=== PATIENT | female | born 1935 | race Caucasian/White ===

== ENCOUNTER 2017-08-10 12:07 | Emergency (ER) | payer OTHER, BC ==
[~2017-08-10] VITALS: Ht 157.5 cm; Wt 51.2 kg
[~2017-08-10 12:07] MED LIST: BAY PO; BIOTIN1 TAB PO; CITRACAL PO; CO Q-1010 MG PO; DILAUDID2 MG PO; FLA500 PO; GABAPENTIN800 M1 PO; HYDROCHLOROTHIA25 MG PO; HYDROCHLOROTHIA50 MG PO; LEVOFLOXACIN500 M1 PO; LEVOTHYROXIN0.075 M2 PO; LISINOPRIL40 MG PO; LUTEIN20 M1 PO; METFORMIN HCL1000 MG PO; METFORMIN500 M1; OXYBUTYNIN CHLOR5 MG PO; PROBIOTIC FORMU1 CA2 PO; PROPRANOLOL HCL20 MG PO; SIMVASTATIN40 M1 PO; ZESTRIL20 MG PO; ZOF4 PO; ZONEGRAN100 MG PO; ZONISAMIDE100 M1 PO; [UNRECOGNIZED DRUG - OTHER] PO
[2017-08-10 12:12] VITALS: Ht 157.5 cm; Wt 51.2 kg
[2017-08-10 14:08] VITALS: BP 174/70
== END 2017-08-10 14:08 | disposition home or self-care (01) ==
LOC: ED 12:07
DX: S93.401A Sprain of unspecified ligament of right ankle, initial encounter (principal); I10 Essential (primary) hypertension; E11.9 Type 2 diabetes mellitus without complications; Z90.49 Acquired absence of other specified parts of digestive tract; Z90.710 Acquired absence of both cervix and uterus; Z85.3 Personal history of malignant neoplasm of breast; W18.39XA Other fall on same level, initial encounter; Y93.89 Activity, other specified; Y92.89 Other specified places as the place of occurrence of the external cause; Y99.8 Other external cause status

== ENCOUNTER 2018-09-29 07:46 | Inpatient (IN) | payer OTHER, BC ==
[~2018-09-29] VITALS: Ht 157.5 cm; Wt 54.9 kg
--- NOTE | 2018-09-29 08:11 | NUR ---
er md at bedside for evaluations/assessments.adult family bedside.awaits reevaluations.
--- NOTE | 2018-09-29 08:46 | NUR ---
IV access started aseptically with blood drawn/sent to lab,ivf started.pt tolerated procedures with no incidents.monitors on.adult family bedside.awaits test results,reevaluations.aao person,month type place.
[2018-09-29 08:49] LABS: BASOPHIL % 0.3 % (0-2); PLATELET COUNT 334 x10^3mcL (130-400); RED CELL DISTRIBUTION WIDTH 13.1 % (11.5-14.5)
[2018-09-29 08:59] LABS: CALCIUM 8.3 mg/dL (8.5-10.1); CHLORIDE SERUM 91 mmol/L (98-107); CREATININE SERUM 0.6 mg/dL (0.6-1.0); GLUCOSE SERUM 87 mg/dL (74-106); POTASSIUM SERUM 3.7 mmol/L (3.5-5.1); SODIUM SERUM 129 mmol/L (136-145)
[2018-09-29 09:15] LABS: ALBUMIN 3.5 g/dL (3.4-5.0); ALKALINE PHOSPHATASE 51 U/L (46-116); ALT/SGPT 32 U/L (14-59); AST/SGOT 31 U/L (15-37); BILIRUBIN TOTAL 0.8 mg/dL (0.20-1.00); TOTAL PROTEIN, SERUM 6.9 g/dL (6.4-8.2)
--- NOTE | 2018-09-29 09:21 | NUR ---
RESTING ER # 14 hob @ 45 degrees sr up,eys closed,nad.adult family bedside.monitors on.awaits reevaluations.
--- NOTE | 2018-09-29 09:49 | NUR ---
iv access started aseptically,iv meds given per er md orders.pt tolerated procedures with no incidents.adult female relative bedside.awaits ct test ,test results,reevaluations.yolanda guerrero.
--- NOTE | 2018-09-29 10:20 | NUR ---
I/O catheter done by [facility] [employer] instructor with 3 provisioning specialist students,as permitted by pt family/pt,with some urine result.pt tolerated procedures with no incidents.urine dip is done,er md made aware of reults.awaits reevaluations.yolanda guerrero.
--- NOTE | 2018-09-29 10:43 | NUR ---
resting on her left side,monitos on,nad.awake alert calm quiet .adult family bedside.
--- NOTE | 2018-09-29 11:38 | NUR ---
PT repositioned on bed.pt tolerated procedures with no incidents.monitors on.awaits reevaluations.rivasoyolanda.adult family states she is more alert now than past 3 days.pt still does not to drink/eat.
--- NOTE | 2018-09-29 12:05 | NUR ---
pt ambulated to/from bathroom with assist from adult daughter to urinate.pt tolerated procedures with no incidents.awaits md consult,bed assignment,reevaluations.yolanda guerrero.spouse and adult daughter bedside.
--- NOTE | 2018-09-29 12:25 | NUR ---
MD CONSULT BEDSIDE AND talking to pt spouse.awaits bed assignment,reevaluations.
--- NOTE | 2018-09-29 12:39 | NUR ---
pt endorsed to/accepted by nel blount.awaits [facility],reevaluations.
--- NOTE | 2018-09-29 13:05 | NUR ---
RECEIVED PT FROM ED VIA [facility]TVYOGESH, CAME IN DUE TO DECREASED APPETITE AND DRINKING X4 DAYS W/ GENERALIZED WEAKNESS. AAOX4. DENIES HEADACHE/DIZZINESS. ABLE TO FOLLOW COMMANDS. SPEECH IS CLEAR. NO SOB NOTED, LUNG SOUNDS CTA. DENIES CHEST PAIN/PRESSURE. DENIES CHEST PAIN/PRESSURE. DENIES ABDOMINAL DISCOMFORT. VOIDS. IV SITE ON THE RFA IS PATENT AND INTACT. SIDE RAILS UPX2. CALL LIGHT ON REACH. HOB ELEVATED AT 30 DEG. FAMILY AT BEDSIDE. PRIMARY NURSE SUPIN AT BEDSIDE FOR CONTINUITY OF CARE
--- NOTE | 2018-09-29 13:10 | NUR ---
SEEN IN BED AAOX4. NULATO. NO RESP DISTRESS NOTED. GEN BODY WEAKNESS. PER DAUGHTER PETIENT HAS NOT BEEN EATING SINCE MONDAY. DENIES PAIN. USES CANE AT HOME TO AMBULATE. IV S/L TO RFA FLUSHED PATENT. CALL LIGHT PLACED WITHIN EASY REACH. SIDERAILS UP X2.
[2018-09-29 13:14] VITALS: BP 170/72
[2018-09-29 13:19] LABS: CHOLESTEROL/HDL RATIO 2.9; MAGNESIUM 1.4 mg/dL (1.8-2.4); PHOSPHOROUS 2.8 mg/dL (2.5-4.9)
[2018-09-29 13:24] VITALS: Ht 157.5 cm; Wt 54.9 kg
[2018-09-29 13:27] LABS: FREE T4 1.45 ng/dL (0.76-1.46); FREE THYROXINE INDEX 3.6 ug/dL (1.4-4.5); T3 TOTAL 0.57 ng/mL; T4(THYROXINE) 9.3 ug/dL (4.7-13.3)
[2018-09-29 17:16] VITALS: BP 147/63
--- NOTE | 2018-09-29 18:26 | NUR ---
HAD JELLO X2 AND SEVERAL BITES OF RICE, REFUSED THE REST OF THE FOOD. DENIES PAIN OR DIZZINESS AT THIS TIME. OFTEN REINSTRUCED TO CALL FOR HELP NEEDED, PATIENT VERBALIZED UNDERSTANDING. IVF NS AT 100ML/HR INFUSING WELL TO RFA IV SITE. BED ALARM ON.
--- NOTE | 2018-09-29 19:25 | NUR ---
CARE ASSUMED FROM OUTGOING RN. PT RESTING COMFORTABLY IN BED. NO ACUTE DISTRESS NOTED. EVEN AND UNLABORED RESPIRATIONS ON RA. MEDSURG PT. IV PATENT AND INTACT RUNNING FLUIDS PER EMAR. C/O CHRONIC BACK PAIN, TOLERABLE AT THIS TIME, WILL MEDICATE PER EMAR PRN. BED IN LOWEST POSITION. SIDE RAILS UPX2. CALL LIGHT WITHIN REACH. WILL CONTINUE TO MONITOR.
[2018-09-29 19:31] LABS: UA SPECIFIC GRAVITY 1.015 (1.005-1.035); microscopic required? YES; urine erythrocyte NEGATIVE (NEGATIVE)
[2018-09-29 19:40] LABS: AMPHETAMINE QUAL UR NONE DETECTED (See below)
[2018-09-29 20:36] VITALS: BP 167/62; BP 185/89
--- NOTE | 2018-09-29 23:45 | NUR ---
IV ANTIBIOTIC STARTED PER EMAR, IV PATENT AND INTACT. PT RESTING COMFORTABLY IN BED. NO ACUTE DISTRESS NOTED. BED IN LOWEST POSITION. SIDE RAILS UPX2. CALL LIGHT WITHIN REACH. WILL CONTINUE TO MONITOR.
[2018-09-30 05:40] LABS: CALCIUM 8.1 mg/dL (8.5-10.1); CARBON DIOXIDE 23.3 mmol/L (21-32); CHLORIDE SERUM 99 mmol/L (98-107); CREATININE SERUM 0.6 mg/dL (0.6-1.0); GLUCOSE SERUM 95 mg/dL (74-106); MAGNESIUM 1.4 mg/dL (1.8-2.4); PHOSPHOROUS 2.3 mg/dL (2.5-4.9); POTASSIUM SERUM 3.4 mmol/L (3.5-5.1); SODIUM SERUM 133 mmol/L (136-145)
[2018-09-30 05:44] VITALS: BP 173/75
--- NOTE | 2018-09-30 07:21 | NUR ---
PT RESTED IN INTERVALS THROUGHOUT THE SHIFT. ALL NEEDS TENDED TO AND MET. ALL SCHEDULED MEDICATIONS GIVEN. BP THIS AM: 173/75, ADMINISTERED AM APRESOLINE EARLY. IV PATENT AND INTACT RUNNING FLUIDS PER EMAR. BLOOD SUGAR CONTROLED, NO INSULIN COVERAGE REQUIRED. BED IN LOWEST POSITION, SIDE RAIL UPX2. CALL LIGHT WITHIN REACH. WILL ENDORSE TO ONCOMING SHIFT.
--- NOTE | 2018-09-30 07:25 | NUR ---
SEEN RESTING ON LEFT SIDE WITH EYES CLOSED. BREATHING E/U ON ROOM AIR. IVF NS AT 100ML/HR TO RFA IV SITE INFUSING WELL. SCD TO BLE INPLACED. CALL LIGHT NOTED PLACED WITHIN EASY REACH. SIDERAILS UP X2. WILL CONTINUE TO MONITOR.
[2018-09-30 07:48] LABS: BASOPHIL % 0.4 % (0-2); PLATELET COUNT 330 x10^3mcL (130-400); RED CELL DISTRIBUTION WIDTH 13.2 % (11.5-14.5)
--- NOTE | 2018-09-30 08:45 | NUR ---
ABLE TO FINISH ONE BANANA AND 2 APPLE SAUCE WITH TEA. DENIES NAUSEA. AM SCHEDULED MEDS GIVEN. PLAN OF CARE DISCUSSED. CALL LIGHT REINSTRUCTED AND PLACED WITHIN EASY REACH. SIDERAILS UP X2.
[2018-09-30 10:15] VITALS: BP 121/55
--- NOTE | 2018-09-30 10:30 | NUR ---
RESTING IN BED ON RIGHT SIDE WITH EYES CLOSED. IVF NS TO RFA INFUSING WELL.
--- NOTE | 2018-09-30 12:55 | NUR ---
CCHO DIET LUNCH PROVIDED. DENIES NAUSEA. FAMILY AT BEDSIDE VERY SUPORTIVE.
[2018-09-30 17:00] VITALS: BP 127/60
--- NOTE | 2018-09-30 17:08 | NUR ---
ASSISTED TO BATHROOM NOTED WITH SLIGHTLY UNSTEADY GAIT. VOIDED, DENIES BURNING SENSATION. ASSISTED BACK TO BED. IVF NS CONTINUED AT 100ML/HR TO RFA IV SITE. FSBS =93.
--- NOTE | 2018-09-30 19:00 | NUR ---
PATIENT HAS MORE APPETITE TODAY. TOLERATED TO [facility] DIET WELL. DENIES NAUSEA. NO BM TODAY. ALL SCHEDULEDS MEDS GIVEN.
[2018-09-30 19:17] VITALS: BP 137/56
--- NOTE | 2018-09-30 19:20 | NUR ---
CARE ASSUMED FROM OUTGOING RN. PT RESTING COMFORTABLY IN BED. NO ACUTE DISTRESS NOTED. EVEN AND UNLABORED RESPIRATIONS ON RA. MEDSURG PT. IV PATENT AND INTACT RUNNING FLUIDS PER EMAR. DENIES ANY PAIN AT THIS TIME. BED IN LOWEST POSITION. SIDE RAILS UPX2. CALL LIGHT WITHIN REACH. WILL CONTINUE TO MONITOR.
--- NOTE | 2018-10-01 00:08 | NUR ---
PT ASLEEP COMFORTABLY IN BED. NO ACUTE DISTRESS NOTED. EVEN AND UNLABORED RESPIRATIONS ON RA. IV PATENT AND INTACT RUNNING FLUIDS PER EMAR. BED IN LOWEST POSITION. SIDE RAILS UPX2. CALL LIGHT WITHIN REACH. WILL CONTINUE TO MONITOR.
[2018-10-01 04:55] VITALS: BP 119/68
--- NOTE | 2018-10-01 06:42 | NUR ---
PT SLEPT COMFORTABLY IN INTERVALS THROUGHOUT THE SHIFT. NO ACUTE CHANGES NOTED. ALL NEEDS TENDED TO AND MET. ALL SCHEDULED MEDICATIONS GIVEN. IV PATENT AND INTACT. BLOOD SUGAR COVERED PER SLIDING SCALE. BED IN LOWEST POSITION. SIDE RAILS UPX2. CALL LIGHT WITHIN REACH. WILL ENDORSE TO ONCOMING SHIFT.
[2018-10-01 06:56] LABS: BASOPHIL % 0.5 % (0-2); PLATELET COUNT 308 x10^3mcL (130-400); RED CELL DISTRIBUTION WIDTH 13.4 % (11.5-14.5)
[2018-10-01 07:36] LABS: CALCIUM 7.4 mg/dL (8.5-10.1); CARBON DIOXIDE 24.4 mmol/L (21-32); CHLORIDE SERUM 100 mmol/L (98-107); CREATININE SERUM 0.6 mg/dL (0.6-1.0); GLUCOSE SERUM 88 mg/dL (74-106); MAGNESIUM 1.3 mg/dL (1.8-2.4); PHOSPHOROUS 2.2 mg/dL (2.5-4.9); POTASSIUM SERUM 3.4 mmol/L (3.5-5.1); SODIUM SERUM 135 mmol/L (136-145)
[2018-10-01 08:42] VITALS: BP 149/66
[2018-10-01] MEDS ORDERED: LEVOFLOXACIN500 M1 PO (11:01)
[2018-10-01 12:51] VITALS: BP 149/66
--- NOTE | 2018-10-01 14:33 | NUR ---
SELENA LABOY AT BEDSIDE INFORMED PATIENT HH PT WILL BE ARRANGED FOR HER AND SHE WILL RECEIVE A CALL AFTER DC, PATIENT VERBALIZED UNDERSTANDING. DISCHARGE INSTRUCTIOSN AND PRESCRIPTION GIVEN, PATIENT VERBALIZED UNDERSTANDING. IV DC'D, CATH INTACT. ALL QUESTIONS/CONCERNS ADDRESSED. WAITING FOR TO GENERAL REPAIRER PATIENT.
== END 2018-10-01 15:04 | disposition home or self-care (01) | DRG 391 ==
LOC: ED 07:46 → MU 12:12
PROVIDERS: Emergency Medicine; ADMIT General Practice
DX: R19.7 Diarrhea, unspecified (principal); G93.41 Metabolic encephalopathy; E87.1 Hypo-osmolality and hyponatremia; N39.0 Urinary tract infection, site not specified; E11.9 Type 2 diabetes mellitus without complications; E86.0 Dehydration; E83.42 Hypomagnesemia; E87.8 Other disorders of electrolyte and fluid balance, not elsewhere classified; I10 Essential (primary) hypertension; E78.5 Hyperlipidemia, unspecified; E03.9 Hypothyroidism, unspecified; Z79.82 Long term (current) use of aspirin; Z68.22 Body mass index [BMI] 22.0-22.9, adult; Z85.3 Personal history of malignant neoplasm of breast; Z79.84 Long term (current) use of oral hypoglycemic drugs
CPT/HCPCS: 82962; 84439; 87046; 87046-59; 97112-GP; 97116-GP; 97530-GP; G0378; G0480; J1956; J7030

== ENCOUNTER 2018-10-27 09:08 | Emergency (ER) | payer OTHER, BC ==
[~2018-10-27] VITALS: Ht 157.5 cm; Wt 54.4 kg
[2018-10-27 09:12] VITALS: Ht 157.5 cm; Wt 54.4 kg
[2018-10-27 10:35] LABS: CALCIUM 8.8 mg/dL (8.5-10.1); CARBON DIOXIDE 28.8 mmol/L (21-32); CHLORIDE SERUM 93 mmol/L (98-107); CREATININE SERUM 0.7 mg/dL (0.6-1.0); GLUCOSE SERUM 122 mg/dL (74-106); SODIUM SERUM 130 mmol/L (136-145)
[2018-10-27 10:37] LABS: BASOPHIL % 0.4 % (0-2); PLATELET COUNT 357 x10^3mcL (130-400); RED CELL DISTRIBUTION WIDTH 13.4 % (11.5-14.5)
[2018-10-27 10:40] LABS: ALKALINE PHOSPHATASE 58 U/L (46-116); ALT/SGPT 16 U/L (14-59); AST/SGOT 16 U/L (15-37); BILIRUBIN TOTAL 0.9 mg/dL (0.20-1.00)
[2018-10-27 11:40] VITALS: BP 127/60
== END 2018-10-27 11:40 | disposition home or self-care (01) ==
LOC: ED 09:08
PROVIDERS: Emergency Medicine
DX: M25.461 Effusion, right knee (principal); I10 Essential (primary) hypertension; E11.9 Type 2 diabetes mellitus without complications; G89.29 Other chronic pain; M54.9 Dorsalgia, unspecified; Z88.7 Allergy status to serum and vaccine; Z90.12 Acquired absence of left breast and nipple; Z98.890 Other specified postprocedural states
CPT/HCPCS: 36415; Q0092

== ENCOUNTER 2019-08-04 22:35 | Inpatient (IN) | payer OTHER, BC ==
[~2019-08-04] VITALS: Ht 152.4 cm; Wt 54.4 kg
[2019-08-04 22:45] VITALS: Ht 152.4 cm; Wt 54.4 kg
[2019-08-04 23:31] LABS: BASOPHIL % 0.6 % (0-2); PLATELET COUNT 285 x10^3mcL (130-400); RED CELL DISTRIBUTION WIDTH 13.2 % (11.5-14.5)
[2019-08-04 23:51] LABS: CALCIUM 8.3 mg/dL (8.5-10.1); CARBON DIOXIDE 25.4 mmol/L (21-32); CHLORIDE SERUM 97 mmol/L (98-107); CREATININE SERUM 0.6 mg/dL (0.6-1.0); GLUCOSE SERUM 116 mg/dL (74-106); POTASSIUM SERUM 3.5 mmol/L (3.5-5.1); SODIUM SERUM 132 mmol/L (136-145)
[2019-08-04 23:58] LABS: ALBUMIN 3.4 g/dL (3.4-5.0); ALKALINE PHOSPHATASE 55 U/L (46-116); ALT/SGPT 22 U/L (14-59); AST/SGOT 25 U/L (15-37); BILIRUBIN TOTAL 0.6 mg/dL (0.20-1.00); CHOLESTEROL 181 mg/dL (<200); TOTAL PROTEIN, SERUM 6.7 g/dL (6.4-8.2)
[2019-08-04 23:59] LABS: HDL CHOLESTEROL 70 mg/dL (40-60)
[2019-08-05] VITALS (8 sets, daily range): BP systolic 148–187; BP diastolic 62–98
[2019-08-05 00:52] LABS: microscopic required? NO
[2019-08-05 00:56] LABS: urine erythrocyte NEGATIVE (NEGATIVE)
[2019-08-05] MEDS ORDERED: TIROSINT25 MC1 PO (01:23)
[2019-08-05] MEDS ORDERED: MICROZIDE12.5 MG PO (01:24)
[2019-08-05 03:02] LABS: MAGNESIUM 1.2 mg/dL (1.8-2.4); PHOSPHOROUS 3.6 mg/dL (2.5-4.9)
[2019-08-05 03:06] LABS: CHOLESTEROL/HDL RATIO 2.6
[2019-08-05 03:10] LABS: FREE T4 1.36 ng/dL (0.76-1.46); FREE THYROXINE INDEX 3.1 ug/dL (1.4-4.5); T4(THYROXINE) 8.3 ug/dL (4.7-13.3)
[2019-08-05 07:29] LABS: BASOPHIL % 0.6 % (0-2); PLATELET COUNT 324 x10^3mcL (130-400); RED CELL DISTRIBUTION WIDTH 13.3 % (11.5-14.5)
[2019-08-05 07:41] LABS: CALCIUM 8.1 mg/dL (8.5-10.1); CARBON DIOXIDE 18.4 mmol/L (21-32); CHLORIDE SERUM 98 mmol/L (98-107); CREATININE SERUM 0.5 mg/dL (0.6-1.0); GLUCOSE SERUM 111 mg/dL (74-106); MAGNESIUM 1.2 mg/dL (1.8-2.4); PHOSPHOROUS 2.8 mg/dL (2.5-4.9); POTASSIUM SERUM 3.1 mmol/L (3.5-5.1); SODIUM SERUM 134 mmol/L (136-145)
[2019-08-05 10:04] LABS: T3 TOTAL 0.52 ng/mL
[2019-08-05 10:15] LABS: AMPHETAMINE QUAL UR NONE DETECTED (See below)
[2019-08-06 05:27] VITALS: BP 140/68
[2019-08-06 06:59] LABS: BASOPHIL % 0.6 % (0-2); PLATELET COUNT 291 x10^3mcL (130-400); RED CELL DISTRIBUTION WIDTH 13.5 % (11.5-14.5)
[2019-08-06 07:26] LABS: CALCIUM 8.4 mg/dL (8.5-10.1); CHLORIDE SERUM 102 mmol/L (98-107); CREATININE SERUM 0.6 mg/dL (0.6-1.0); GLUCOSE SERUM 108 mg/dL (74-106); MAGNESIUM 1.7 mg/dL (1.8-2.4); PHOSPHOROUS 2.6 mg/dL (2.5-4.9); POTASSIUM SERUM 3.1 mmol/L (3.5-5.1); SODIUM SERUM 135 mmol/L (136-145)
[2019-08-06 09:05] VITALS: BP 160/58
[2019-08-06 13:46] VITALS: BP 168/64
[2019-08-06 17:39] VITALS: BP 162/61
== END 2019-08-06 17:10 | disposition home health service (06) | DRG 305 ==
LOC: ED 22:35 → DU 08-05 01:05
PROVIDERS: Emergency Medicine; ADMIT Family Medicine; ATTEND Family Medicine
DX: I16.1 Hypertensive emergency (principal); E87.1 Hypo-osmolality and hyponatremia; E86.0 Dehydration; I10 Essential (primary) hypertension; G89.29 Other chronic pain; E11.9 Type 2 diabetes mellitus without complications; E03.9 Hypothyroidism, unspecified; E87.8 Other disorders of electrolyte and fluid balance, not elsewhere classified; Z20.828 Contact with and (suspected) exposure to other viral communicable diseases; E78.5 Hyperlipidemia, unspecified; Z85.3 Personal history of malignant neoplasm of breast; Z90.12 Acquired absence of left breast and nipple; Z88.7 Allergy status to serum and vaccine; Z90.710 Acquired absence of both cervix and uterus; Z90.49 Acquired absence of other specified parts of digestive tract; Z98.1 Arthrodesis status; Z82.49 Family history of ischemic heart disease and other diseases of the circulatory system; Z79.899 Other long term (current) drug therapy
CPT/HCPCS: 76770; 82962; 83880; 84439; 97116-GP; 97530-GP; G0378; J0360; J2405; J2765; J7030; Q0092; U0003-CS